=== PATIENT | female | born 1940 | race Caucasian/White ===

== ENCOUNTER → 2018-09-23 15:02 | Outpatient (CLI) | payer OTHER, SELFPAY ==
[2018-09-23 17:48] LABS: Cancer Antigen 125 < 6 U/mL (0-35)
== END ==
PROVIDERS: PCP Obstetrics & Gynecology; Visit Provider Obstetrics & Gynecology
DX: R19.09 Other intra-abdominal and pelvic swelling, mass and lump (principal)
CPT/HCPCS: 36415; 86304

== ENCOUNTER 2019-03-03 14:30 | Outpatient (RCR) | payer OTHER, SELFPAY ==
--- NOTE | 2018-12-30 16:30 | PT.OIE ---
Current Diagnoses Other female genital prolapse (12/30/18) Past Surgical History Status post appendectomy Provider Visit Care Team Role Provider Type Axel Cristobal DO Primary Care Provider Non-Staff Specialty: Family Practice Address: [id number], [place], [address] Email: Yasmine Curtis MD Attending Provider Physician Specialty: TEST TECHNICIAN Address: [address] [place] [address] [address], [place], [address] Email: [email or web address] Physical Therapy Initial Evaluation PT-OP-A Visit Information Start: 12/30/18 10:54 Freq: Status: Active Protocol: Document 12/30/18 14:30 AMB (Rec: 12/30/18 15:06 AMB [email or web address]) Out-Patient Physical Therapy Visit Information Visit Information Visit Type Initial Evaluation Visit Start Time 14:30 Visit Stop Time 15:15 Total Visit Minutes 45 Visit Number 1 PT-OP-B Current Condition Start: 12/30/18 10:54 Freq: Status: Active Protocol: Document 12/30/18 14:30 AMB (Rec: 12/30/18 16:20 AMB [email or web address]) Current Condition History of Current Condition Onset Date 1 year ago Current Complaints prolapse, urinary incontinence History of Current Condition Iliana notes she became very constipated and worsened her prolapse about a year ago. She is not interested in surgery and has tried a pessary but it didn't fit well and she gave up trying to go back and get one that fit well . She has been doing Kegel's for about a year but is hoping to get it better because currently she needs to push the prolapse back up inside of her when she is on the toilet . 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 She has managed the constipation with stool softeners and magnesium. She does have a distant history of 2 vaginal births with episiotomy. She does have a history of urgency, and manages it with voiding every 2 hours, but if she tries to void less frequently she will get a sudden urge and may have a large leak of urine. She denies fecal leakage. Treatment Goals Patient/Caregiver Goals Go to the bathroom without having to put prolapse back in . Prior Functional Status Baseline Function- ADL's Independent Baseline Function- Mobility Independent Current Functional Impairments (Reported) Functional Limitations- ADL's must use hand to put prolapse in, especially after urinating or bowel movement. Personal Factors Other Personal Factors That May Effect hypertension, previous Therapy/Recovery concussion 3 years ago, osteopenia, arthritis. PT-OP-C Subjective Start: 12/30/18 10:54 Freq: Status: Active Protocol: Document 12/30/18 14:30 AMB (Rec: 12/30/18 16:20 AMB [email or web address]) Patient Questionnaires Pelvic Pain and Urgency/Frequency Patient Symptom Scale Pelvic Pain Score 12 PT-OP-I Pelvic Floor Start: 12/30/18 10:54 Freq: Status: Active Protocol: Document 12/30/18 14:30 AMB (Rec: 12/30/18 16:20 AMB [email or web address]) Pelvic Floor Assessment Urine Pelvic Floor Surgery No Urinary Symptoms Urge Sensation Prolapse Falling Out Feeling/Heavy Leakage Size Large Leakage Cause Urge Voiding Frequency every 2 hours Nocturia 2 Bowel Bowel Symptoms Constipation Prolapse Cystocele Grade 3 Prolapse Comments pt reports it feels like prolapse can worsen and come out especially with bowel movement Perineal Descent Resting Present Bearing Present Contraction Ability Voluntary Contraction Weak Voluntary Relaxation Weak Manual Muscle Testing Left 2 Manual Muscle Testing Right 2 Manual Muscle Testing Anterior 2 Manual Muscle Testing Posterior 3 Muscle Endurance (Seconds) 5 Number of Quick Contractions In 10 5 Seconds PT-OP-T Assessment and Plan Start: 12/30/18 10:54 Freq: Status: Active Protocol: Document 12/30/18 14:30 AMB (Rec: 12/30/18 16:30 AMB [email or web address]) Physical Therapy Assessment Rehab Potential Rehabilitation Potential Good Evaluation Complexity Number of Personal Factors/Comorbidities 3 or More Number of Body Systems Impaired 1-2 Clinical Presentation at Evaluation Stable Impairments Impairments Strength Goals Two Impairment continence Short Term Goal (STG) Iliana will use urge suppression techniques so that she can walk to the bathroom without leaking. STG Duration 4 weeks One Impairment prolapse Short Term Goal (STG) Iliana will improve her pelvic floor strength so that she can contract her pelvic floor for 10 seconds in standing. STG Duration 4 weeks Automation And Controls Supervisor Goal (LTG) Iliana will be able to go throughout her day without needing to manually put her prolapse back inside her. LTG Duration 8 weeks Assessment Summary Assessment Iliana attends physical therapy with cystocele that she has been managing with Kegels for the past year. Despite doing Kegels she feels that she has had to keep manually assisting the prolapse back up multiple times per day and is hoping that with exercises she can better manage it. 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 She also voids frequently to avoid incontinent leak. She was able to perform a pelvic floor contraction for a good 5 seconds, so we will need to progress her quickly considering her baseline strength and every day activities. Physical Therapy Plan Frequency and Duration Frequency of Treatment 1x/Week Duration of Treatment 8 weeks Plan of Care Start Date 12/30/18 Plan of Care End Date 02/24/19 Therapeutic Interventions Therapeutic Interventions Home Exercise Program Manual Therapy Neuromuscular Re-education Self-Care/Home Management Therapeutic Activities Therapeutic Exercises Modalities Biofeedback Electric Stimulation Next Visit Focus/Plan Next Note Type Treatment Note Next Visit Plan sEMG vs NMES to promote strengthening, continue instruction in managing lifting without prolapse.
--- NOTE | 2018-12-30 16:30 | PT.OPPOC ---
Current Diagnoses Other female genital prolapse (12/30/18) Provider Visit Care Team Role Provider Type Axel Cristobal DO Primary Care Provider Non-Staff Specialty: Family Practice Address: [id number], [place], [address] Email: Yasmine Curtis MD Attending Provider Physician Specialty: SENIOR EMBEDDED SOFTWARE ENGINEER Address: [address] [place] [address], [address] Email: [email or web address] Plan Of Care PT-OP-T Assessment and Plan Start: 12/30/18 10:54 Freq: Status: Active Protocol: Document 12/30/18 14:30 AMB (Rec: 12/30/18 16:30 AMB [email or web address]) Physical Therapy Assessment Rehab Potential Rehabilitation Potential Good Evaluation Complexity Number of Personal Factors/Comorbidities 3 or More Number of Body Systems Impaired 1-2 Clinical Presentation at Evaluation Stable Impairments Impairments Strength Goals Two Impairment continence Short Term Goal (STG) Iliana will use urge suppression techniques so that she can walk to the bathroom without leaking. STG Duration 4 weeks One Impairment prolapse Short Term Goal (STG) Iliana will improve her pelvic floor strength so that she can contract her pelvic floor for 10 seconds in standing. STG Duration 4 weeks Vulcanized Fiber Unit Operator Goal (LTG) Iliana will be able to go throughout her day without needing to manually put her prolapse back inside her. LTG Duration 8 weeks Assessment Summary Assessment Iliana attends physical therapy with cystocele that she has been managing with Kegels for the past year. Despite doing Kegels she feels that she has had to keep manually assisting the prolapse back up multiple times per day and is hoping that with exercises she can better manage it. 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 She also voids frequently to avoid incontinent leak. She was able to perform a pelvic floor contraction for a good 5 seconds, so we will need to progress her quickly considering her baseline strength and every day activities. Physical Therapy Plan Frequency and Duration Frequency of Treatment 1x/Week Duration of Treatment 8 weeks Plan of Care Start Date 12/30/18 Plan of Care End Date 02/24/19 Therapeutic Interventions Therapeutic Interventions Home Exercise Program Manual Therapy Neuromuscular Re-education Self-Care/Home Management Therapeutic Activities Therapeutic Exercises Modalities Biofeedback Electric Stimulation Next Visit Focus/Plan Next Note Type Treatment Note Next Visit Plan sEMG vs NMES to promote strengthening, continue instruction in managing lifting without prolapse. Plan of Care Dates Plan of Care Start Date 12/30/18 Plan of Care End Date 02/24/19 Please Sign and Return: I have reviewed this Plan of Care and certify that the skilled therapy services above are required to meet the patient?s needs. Physician Signature Date Printed Name and Credentials Clinical Instructor Signature Printed Name and Credentials
--- NOTE | 2019-01-20 17:00 | PT.OTN ---
Current Diagnoses Other female genital prolapse (01/20/19) Physical Therapy Treatment Note PT-OP-A Visit Information Start: 12/30/18 10:54 Freq: Status: Active Protocol: Document 01/20/19 14:30 AMB (Rec: 01/20/19 14:48 AMB [id number]) Out-Patient Physical Therapy Visit Information Visit Information Visit Type Treatment Note Visit Start Time 14:30 Visit Stop Time 15:30 Total Visit Minutes 60 Visit Number 2 PT-OP-B Current Condition Start: 12/30/18 10:54 Freq: Status: Active Protocol: Document 12/30/18 14:30 AMB (Rec: 12/30/18 16:20 AMB [email or web address]) Current Condition History of Current Condition Onset Date 1 year ago Current Complaints prolapse, urinary incontinence History of Current Condition Iliana notes she became very constipated and worsened her prolapse about a year ago. She is not interested in surgery and has tried a pessary but it didn't fit well and she gave up trying to go back and get one that fit well . She has been doing Kegel's for about a year but is hoping to get it better because currently she needs to push the prolapse back up inside of her when she is on the toilet . 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 She has managed the constipation with stool softeners and magnesium. She does have a distant history of 2 vaginal births with episiotomy. She does have a history of urgency, and manages it with voiding every 2 hours, but if she tries to void less frequently she will get a sudden urge and may have a large leak of urine. She denies fecal leakage. Treatment Goals Patient/Caregiver Goals Go to the bathroom without having to put prolapse back in . Prior Functional Status Baseline Function- ADL's Independent Baseline Function- Mobility Independent Current Functional Impairments (Reported) Functional Limitations- ADL's must use hand to put prolapse in, especially after urinating or bowel movement. Personal Factors Other Personal Factors That May Effect hypertension, previous Therapy/Recovery concussion 3 years ago, osteopenia, arthritis. PT-OP-C Subjective Start: 12/30/18 10:54 Freq: Status: Active Protocol: Document 01/20/19 14:30 AMB (Rec: 01/20/19 14:48 AMB [email or web address]) OP-PT Subjective Patient Comments Patient Comments Pt states she is feeling about the same PT-OP-I Pelvic Floor Start: 12/30/18 10:54 Freq: Status: Active Protocol: Document 12/30/18 14:30 AMB (Rec: 12/30/18 16:20 AMB [email or web address]) Pelvic Floor Assessment Urine Pelvic Floor Surgery No Urinary Symptoms Urge Sensation,Prolapse, Falling Out Feeling/Heavy Leakage Size Large Leakage Cause Urge Voiding Frequency every 2 hours Nocturia 2 Bowel Bowel Symptoms Constipation Prolapse Cystocele Grade 3 Prolapse Comments pt reports it feels like prolapse can worsen and come out especially with bowel movement Perineal Descent Resting Present Bearing Present Contraction Ability Voluntary Contraction Weak Voluntary Relaxation Weak Manual Muscle Testing Left 2 Manual Muscle Testing Right 2 Manual Muscle Testing Anterior 2 Manual Muscle Testing Posterior 3 Muscle Endurance (Seconds) 5 Number of Quick Contractions In 10 5 Seconds PT-OP-Q Treatments Start: 12/30/18 10:54 Freq: Status: Active Protocol: Document 01/20/19 14:30 AMB (Rec: 01/21/19 09:51 AMB [email or web address]) Therapeutic Exercises Supine Exercises 2 Supine Exercise Name quick flicks and long holds Comments up to 10 seconds 1 Supine Exercise Name roll in roll out Resistance #2 t band Sitting Exercises 1 Sitting Exercise Name long holds Reps/Minutes 10 secondsx 10 Standing Exercises 1 Standing Exercise Name lunge and squat Comments with pelvic floor contract PT-OP-T Assessment and Plan Start: 12/30/18 10:54 Freq: Status: Active Protocol: Document 01/20/19 14:30 AMB (Rec: 01/21/19 09:51 AMB [email or web address]) Physical Therapy Assessment Assessment Summary Assessment Extensive education today on what cystocele is, giving herself time to full get urine out of the bladder and that that may entail moving around on toilet. Also discussed treatment options of surgery, pessary which she is not interested in. Encouraged in trying to contract pelvic floor with weightlifting. Physical Therapy Plan Next Visit Focus/Plan Next Note Type Treatment Note Next Visit Plan Further education on how to contract with upright and quadruped exercises.
--- NOTE | 2019-01-27 16:00 | PT.OTN ---
Current Diagnoses Other female genital prolapse (01/27/19) Physical Therapy Treatment Note PT-OP-A Visit Information Start: 12/30/18 10:54 Freq: Status: Active Protocol: Document 01/27/19 14:30 AMB (Rec: 01/30/19 07:07 AMB [email or web address]) Out-Patient Physical Therapy Visit Information Visit Information Visit Type Treatment Note Visit Start Time 14:30 Visit Stop Time 15:20 Total Visit Minutes 50 Visit Number 3 PT-OP-B Current Condition Start: 12/30/18 10:54 Freq: Status: Active Protocol: Document 12/30/18 14:30 AMB (Rec: 12/30/18 16:20 AMB [email or web address]) Current Condition History of Current Condition Onset Date 1 year ago Current Complaints prolapse, urinary incontinence History of Current Condition Iliana notes she became very constipated and worsened her prolapse about a year ago. She is not interested in surgery and has tried a pessary but it didn't fit well and she gave up trying to go back and get one that fit well . She has been doing Kegel's for about a year but is hoping to get it better because currently she needs to push the prolapse back up inside of her when she is on the toilet . 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 She has managed the constipation with stool softeners and magnesium. She does have a distant history of 2 vaginal births with episiotomy. She does have a history of urgency, and manages it with voiding every 2 hours, but if she tries to void less frequently she will get a sudden urge and may have a large leak of urine. She denies fecal leakage. Treatment Goals Patient/Caregiver Goals Go to the bathroom without having to put prolapse back in . Prior Functional Status Baseline Function- ADL's Independent Baseline Function- Mobility Independent Current Functional Impairments (Reported) Functional Limitations- ADL's must use hand to put prolapse in, especially after urinating or bowel movement. Personal Factors Other Personal Factors That May Effect hypertension, previous Therapy/Recovery concussion 3 years ago, osteopenia, arthritis. PT-OP-C Subjective Start: 12/30/18 10:54 Freq: Status: Active Protocol: Document 01/27/19 14:30 AMB (Rec: 01/30/19 07:07 AMB [email or web address]) OP-PT Subjective Patient Comments Patient Comments Pt went to the gym and tried to contract pelvic floor while she was exercising which was quite hard, but she felt that it did help keep her in a bit more. PT-OP-I Pelvic Floor Start: 12/30/18 10:54 Freq: Status: Active Protocol: Document 12/30/18 14:30 AMB (Rec: 12/30/18 16:20 AMB [email or web address]) Pelvic Floor Assessment Urine Pelvic Floor Surgery No Urinary Symptoms Urge Sensation,Prolapse, Falling Out Feeling/Heavy Leakage Size Large Leakage Cause Urge Voiding Frequency every 2 hours Nocturia 2 Bowel Bowel Symptoms Constipation Prolapse Cystocele Grade 3 Prolapse Comments pt reports it feels like prolapse can worsen and come out especially with bowel movement Perineal Descent Resting Present Bearing Present Contraction Ability Voluntary Contraction Weak Voluntary Relaxation Weak Manual Muscle Testing Left 2 Manual Muscle Testing Right 2 Manual Muscle Testing Anterior 2 Manual Muscle Testing Posterior 3 Muscle Endurance (Seconds) 5 Number of Quick Contractions In 10 5 Seconds PT-OP-Q Treatments Start: 12/30/18 10:54 Freq: Status: Active Protocol: Document 01/27/19 14:30 AMB (Rec: 01/30/19 07:07 AMB [email or web address]) Therapeutic Exercises Supine Exercises 2 Supine Exercise Name quick flicks and long holds Comments up to 10 seconds 1 Supine Exercise Name roll in roll out Resistance #2 t band Standing Exercises 1 Standing Exercise Name lunge and squat Comments with pelvic floor contract Other Exercises 1 Other Exercise Name quadruped LE extension Comments with PF contraction and breath Neuro Re-Education Treatment Other Activities 1 Details sEMG Comments long holds and quick flicks PT-OP-T Assessment and Plan Start: 12/30/18 10:54 Freq: Status: Active Protocol: Document 01/27/19 14:30 AMB (Rec: 01/30/19 07:07 AMB [email or web address]) Physical Therapy Assessment Assessment Summary Assessment Iliana did well today with venice pelvic floor, but continues to feel prolapse at times. Physical Therapy Plan Next Visit Focus/Plan Next Note Type Treatment Note Next Visit Plan Further education on how to contract with upright and quadruped exercises.
--- NOTE | 2019-03-03 16:00 | PT.OPPOC ---
Current Diagnoses Other female genital prolapse (03/03/19) Visit Care Team Role Provider Type Axel Cristobal DO Primary Care Provider Non-Staff Specialty: Family Practice Address: [address] [facility] [address], [place], [address] Email: Yasmine Curtis MD Attending Provider Physician Specialty: TOOLING INSPECTOR Address: [address] [place] [address], [place], [address] Email: [email or web address] Plan Of Care PT-OP-T Assessment and Plan Start: 12/30/18 10:54 Freq: Status: Active Protocol: Document 03/03/19 14:30 AMB (Rec: 03/04/19 11:05 AMB [email or web address]) Physical Therapy Assessment Goals Two Impairment continence Short Term Goal (STG) Iliana will use urge suppression techniques so that she can walk to the bathroom without leaking. 03/04: Iliana urinates every 2 hours when outside the house, but pushes the length between voids when home, and then does have urgency, she has been instructed in urge suppression . STG Duration INTERMITTENTLY MET One Impairment prolapse Short Term Goal (STG) Iliana will improve her pelvic floor strength so that she can contract her pelvic floor for 10 seconds in standing. STG Duration MET [facility] Goal (LTG) Iliana will be able to go throughout her day without needing to manually put her prolapse back inside her. LTG Duration MET Physical Therapy Plan Frequency and Duration Frequency of Treatment 1x/Week Duration of Treatment 1 week Plan of Care Start Date 02/24/19 Plan of Care End Date 03/03/19 Therapeutic Interventions Therapeutic Interventions Home Exercise Program,Manual Therapy,Neuromuscular Re- education,Self-Care/Home Management,Therapeutic Activities,Therapeutic Exercises Modalities Biofeedback,Electric Stimulation Discharge Physical Therapy Discharge Reasons Goals Met Discharge Comments Pt feels ready to d/c Plan of Care Dates Plan of Care Start Date 02/24/19 Plan of Care End Date 03/03/19
--- NOTE | 2019-03-03 16:00 | PT.OTN ---
Current Diagnoses Other female genital prolapse (03/03/19) Physical Therapy Treatment Note PT-OP-A Visit Information Start: 12/30/18 10:54 Freq: Status: Active Protocol: Document 03/03/19 14:30 AMB (Rec: 03/04/19 11:05 AMB [email or web address]) Out-Patient Physical Therapy Visit Information Visit Information Visit Type Discharge Summary Visit Start Time 14:30 Visit Stop Time 15:15 Total Visit Minutes 45 Visit Number 4 PT-OP-B Current Condition Start: 12/30/18 10:54 Freq: Status: Active Protocol: Document 12/30/18 14:30 AMB (Rec: 12/30/18 16:20 AMB [email or web address]) Current Condition History of Current Condition Onset Date 1 year ago Current Complaints prolapse, urinary incontinence History of Current Condition Iliana notes she became very constipated and worsened her prolapse about a year ago. She is not interested in surgery and has tried a pessary but it didn't fit well and she gave up trying to go back and get one that fit well . She has been doing [employer] for about a year but is hoping to get it better because currently she needs to push the prolapse back up inside of her when she is on the toilet . 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 She has managed the constipation with stool softeners and magnesium. She does have a distant history of 2 vaginal births with episiotomy. She does have a history of urgency, and manages it with voiding every 2 hours, but if she tries to void less frequently she will get a sudden urge and may have a large leak of urine. She denies fecal leakage. Treatment Goals Patient/Caregiver Goals Go to the bathroom without having to put prolapse back in . Prior Functional Status Baseline Function- ADL's Independent Baseline Function- Mobility Independent Current Functional Impairments (Reported) Functional Limitations- ADL's must use hand to put prolapse in, especially after urinating or bowel movement. Personal Factors Other Personal Factors That May Effect hypertension, previous Therapy/Recovery concussion 3 years ago, osteopenia, arthritis. PT-OP-C Subjective Start: 12/30/18 10:54 Freq: Status: Active Protocol: Document 03/03/19 14:30 AMB (Rec: 03/04/19 11:05 AMB [email or web address]) OP-PT Subjective Patient Comments Patient Comments Pt has not been having to manually assist her prolapse back in, she feels she is ready for discharge and will continue on with the exercises independently. PT-OP-I Pelvic Floor Start: 12/30/18 10:54 Freq: Status: Active Protocol: Document 12/30/18 14:30 AMB (Rec: 12/30/18 16:20 AMB [email or web address]) Pelvic Floor Assessment Urine Pelvic Floor Surgery No Urinary Symptoms Urge Sensation,Prolapse, Falling Out Feeling/Heavy Leakage Size Large Leakage Cause Urge Voiding Frequency every 2 hours Nocturia 2 Bowel Bowel Symptoms Constipation Prolapse Cystocele Grade 3 Prolapse Comments pt reports it feels like prolapse can worsen and come out especially with bowel movement Perineal Descent Resting Present Bearing Present Contraction Ability Voluntary Contraction Weak Voluntary Relaxation Weak Manual Muscle Testing Left 2 Manual Muscle Testing Right 2 Manual Muscle Testing Anterior 2 Manual Muscle Testing Posterior 3 Muscle Endurance (Seconds) 5 Number of Quick Contractions In 10 5 Seconds PT-OP-Q Treatments Start: 12/30/18 10:54 Freq: Status: Active Protocol: Document 03/03/19 14:30 AMB (Rec: 03/04/19 11:05 AMB [email or web address]) Therapeutic Exercises Supine Exercises 2 Supine Exercise Name quick flicks and long holds Comments up to 10 seconds Standing Exercises 1 Standing Exercise Name lunge and squat Comments with pelvic floor contract Other Exercises 1 Other Exercise Name quadruped LE extension Comments with PF contraction and breath PT-OP-T Assessment and Plan Start: 12/30/18 10:54 Freq: Status: Active Protocol: Document 03/03/19 14:30 AMB (Rec: 03/04/19 11:05 AMB [email or web address]) Physical Therapy Assessment Goals Two Impairment continence Short Term Goal (STG) Iliana will use urge suppression techniques so that she can walk to the bathroom without leaking. 03/04: Iliana urinates every 2 hours when outside the house, but pushes the length between voids when home, and then does have urgency, she has been instructed in urge suppression . STG Duration INTERMITTENTLY MET One Impairment prolapse Short Term Goal (STG) Iliana will improve her pelvic floor strength so that she can contract her pelvic floor for 10 seconds in standing. STG Duration MET Senior Games Technician Goal (LTG) Iliana will be able to go throughout her day without needing to manually put her prolapse back inside her. LTG Duration MET Physical Therapy Plan Frequency and Duration Frequency of Treatment 1x/Week Duration of Treatment 1 week Plan of Care Start Date 02/24/19 Plan of Care End Date 03/03/19 Therapeutic Interventions Therapeutic Interventions Home Exercise Program,Manual Therapy,Neuromuscular Re- education,Self-Care/Home Management,Therapeutic Activities,Therapeutic Exercises Modalities Biofeedback,Electric Stimulation Discharge Physical Therapy Discharge Reasons Goals Met Discharge Comments Pt feels ready to d/c
== END 2019-03-23 11:05 | disposition home or self-care (01) ==
LOC: PHYS 14:30
PROVIDERS: PCP Family Medicine; Visit Provider Obstetrics & Gynecology
DX: N81.89 Other female genital prolapse (principal)
CPT/HCPCS: 97110; 97112; 97161

== ENCOUNTER → 2022-06-25 14:54 | Outpatient (CLI) | payer OTHER, SELFPAY ==
--- NOTE | 2022-07-01 08:46 | PM.PFT.1 ---
Pulmonary Function Test Referral & Results Date Patient Seen: 06/25/22 Requesting provider: Hortensia Dobson Results: The spirometry demonstrates an FVC of 1.62 L which is 87% of predicted. The FEV1 was measured at 1.32 L which is 97% of predicted. The FEV1/FVC ratio was 81 which is 111% of predicted. Following the administration of bronchodilator there was 26% improvement in FEF 25-75%. Lung volumes show an SVC of 1.77 L which is 85% of predicted. The diffusing capacity was measured at 18.50 which is 105% of predicted. The maximum voluntary ventilation was reduced Interpretation: This study demonstrates slightly reduced lung volumes which suggest the possibility of restrictive lung disease. FEV1 and FEV1/FVC ratio normal which argues against the presence of any obstructive lung disease although the improvement in FEF 25-75% after bronchodilator suggest some improvement in small airway flow Diffusing capacity is normal Clinical correlation suggested
== END ==
PROVIDERS: PCP Physician Assistant Medical; Referring Provider Physician Assistant Medical; Visit Provider Physician Assistant Medical
DX: R06.09 Other forms of dyspnea (principal); Z87.891 Personal history of nicotine dependence; J98.8 Other specified respiratory disorders
CPT/HCPCS: 94060; 94726; 94729

== ENCOUNTER → 2022-07-31 15:03 | Outpatient (CLI) | payer OTHER, SELFPAY ==
--- NOTE | 2022-07-31 15:05 | DI.US.S_ITS ---
PROCEDURE: US CAROTID DOPPLER BI INDICATIONS: CAROTID ARTERY STENOSIS TECHNIQUE: Color and pulse Doppler interrogation was performed of both carotid systems, with image documentation and velocity measurements. COMPARISON: None. FINDINGS: Stenosis calculations are based on SRU (Society of Radiologists in Ultrasound) criteria. Right side: Brachial blood pressure: 87/52 mm Hg. Common carotid artery peak systolic velocity: 102.3 cm/sec. Internal carotid artery peak systolic velocity: 108.2 cm/sec. Internal carotid artery end diastolic velocity: 33.0 cm/sec. External carotid artery peak systolic velocity: 112.2 cm/sec. ICA/CCA peak systolic ratio: 1 point . James scale imaging description: Mild atheromatous plaque is present at the carotid bifurcation. Percent internal carotid artery stenosis: Less than 50% stenosis. Vertebral artery: Flow direction is antegrade. Left side: Brachial blood pressure: 88/85 mm Hg. Common carotid artery peak systolic velocity: 98.5 cm/sec. Internal carotid artery peak systolic velocity: 110.4 cm/sec. Internal carotid artery end diastolic velocity: 40.3 cm/sec. External carotid artery peak systolic velocity: 64.8 cm/sec. ICA/CCA peak systolic ratio: 1.1 . James scale imaging description: Mild atheromatous plaque is present at the carotid bifurcation. Percent internal carotid artery stenosis: Less than 50% stenosis. Vertebral artery: Flow direction is antegrade. IMPRESSION: 1. Less than 50% stenosis of the bilateral internal carotid arteries. Dictated by: Cat Chaney M.D. on 07/31/2022 at 17:22 Approved by: Cat Chaney M.D. on 07/31/2022 at 17:27
--- NOTE | 2022-07-31 15:47 | DI.RAD.S_ITS ---
PROCEDURE: XR CHEST 2V INDICATIONS: EXCERTIONAL DYSPNEA TECHNIQUE: 2 views of the chest were acquired. COMPARISON: None. FINDINGS: Surgical changes and devices: None. Lungs and pleura: Lungs appear clear. Suspect emphysematous change. No pleural effusions or pneumothorax. Mediastinum: Mediastinal contours are normal. Heart size is normal. Bones and chest wall: No suspicious bony abnormalities. Soft tissues appear unremarkable. IMPRESSION: No acute cardiopulmonary abnormality identified. Suspect emphysematous change. Dictated by: Rafita Tellez M.D. on 07/31/2022 at 16:23 Approved by: Rafita Tellez M.D. on 07/31/2022 at 16:25
== END ==
PROVIDERS: PCP Physician Assistant Medical; Referring Provider Physician Assistant Medical; Visit Provider Physician Assistant Medical
DX: I65.23 Occlusion and stenosis of bilateral carotid arteries (principal); R06.00 Dyspnea, unspecified
CPT/HCPCS: 71046; 93880